=== PATIENT | female | born 1960 | race Caucasian/White ===

== ENCOUNTER 2017-09-23 11:37 | Inpatient (IN) | payer OTHER ==
[~2017-09-23] VITALS: Ht 172.7 cm; Wt 121.9 kg
[~2017-09-23 11:37] MED LIST: ASPI81CH PO; CARI350 PO; CHOL10002; CYCL10 PO; GLIM4 PO; GLIP10 PO; Glucophage1000 MG PO; HYDACE5 PO; INSULANPEN SQ; LISI5 PO; LOSA25 PO; LOVA20 PO; Lantus100 UNIT/1 SQ; Lopressor 25 mg25 MG PO; METF500 PO; METO50ER PO; MULVIT PO; NAPR220 PO; NAPR500 PO; NITR.4SL SL; Nitrostat0.4 MG; OMEP40CA12 PO; PIOG15 PO; SIMV40 PO; VITAMIN D32000 UNI1 PO; [UNRECOGNIZED DRUG - OTHER]
[2017-09-23 12:39] LABS: BASOPHILS ABSOLUTE AUTO 0.03 K/mm3 (0.00-0.23); BASOPHILS PERCENT AUTO 0 % (0-2); EOSINOPHILS ABSOLUTE AUTO 0.08 K/mm3 (0.00-0.68); EOSINOPHILS PERCENT AUTO 1 % (0-6); Hematocrit 39.9 % (33.0-51.0); Hemoglobin 12.4 g/dL (11.5-16.0); IMMATURE GRAN ABSOLUTE AUTO 0.03 K/mm3 (0.00-0.10); IMMATURE GRAN PERCENT AUTO 0 % (0-1); LYMPHOCYTES ABSOLUTE AUTO 1.94 K/mm3 (0.84-5.20); LYMPHOCYTES PERCENT AUTO 23 % (21-46); MONOCYTES ABSOLUTE AUTO 0.65 K/mm3 (0.16-1.47); MONOCYTES PERCENT AUTO 8 % (4-13); Mean Corpuscular HGB 25.6 pg (26.0-34.0); Mean Corpuscular HGB Conc 31.1 g/dL (31.5-36.5); Mean Corpuscular Volume 82 fL (80-100); Mean Platelet Volume 11.5 fL (9.1-12.4); NEUTROPHILS PERCENT AUTO 69 % (41-73); Platelet Count 195 K/mm3 (150-400); RDW Coefficient Variation 14.6 % (11.7-14.2); Red Blood Cell Count 4.85 M/mm3 (3.80-5.20); White Blood Cell Count 8.63 K/mm3 (4.00-11.30)
[2017-09-23 13:01] LABS: Alanine Aminotransfer (ALT/SGP 30 U/L (12-78); Albumin, Blood 3.7 g/dL (3.4-5.0); Albumin/Globulin Ratio 1.1 (0.8-1.8); Alk Phos 86 U/L (50-136); Anion Gap 10 mmol/L (6-16); Aspartate Aminotrans (AST/SGOT 22 U/L (12-37); Bilirubin, Total 0.4 mg/dL (0.1-1.0); Blood Urea Nitrogen 17 mg/dL (8-24); Bun/Creatinine Ratio 28.8 (12.0-20.0); CO2, Blood 24 mmol/L (21-32); Calcium, Blood 8.9 mg/dL (8.5-10.1); Chloride, Blood 104 mmol/L (98-108); Creatinine, Blood 0.59 mg/dL (0.40-1.00); Globulin, Blood 3.5 g/dL (2.2-4.0); Glomerular Filtration Rate >60 (60-); Glucose, Blood 194 mg/dL (70-99); Potassium, Blood 4.6 mmol/L (3.5-5.5); Sodium, Blood 138 mmol/L (136-145); Total Protein, Blood 7.2 g/dL (6.4-8.2); Troponin I 0.038 ng/mL (0.000-0.040)
[2017-09-23] MEDS ORDERED: VITAMIN D35000 UNIT PO (16:11)
[2017-09-23] MEDS ORDERED: GLIM4 PO (16:12)
[2017-09-23] MEDS ORDERED: BIOCLEANSE (16:14)
[2017-09-23] MEDS ORDERED: BASAGLAR K100 UNIT/1 SC (16:14)
[2017-09-23] MEDS ORDERED: METO50ER PO (16:16)
[2017-09-23] MEDS ORDERED: ALEVE220 MG PO (16:17)
[2017-09-24 00:54] LABS: BASOPHILS ABSOLUTE AUTO 0.04 K/mm3 (0.00-0.23); BASOPHILS PERCENT AUTO 1 % (0-2); EOSINOPHILS ABSOLUTE AUTO 0.06 K/mm3 (0.00-0.68); EOSINOPHILS PERCENT AUTO 1 % (0-6); Hematocrit 40.2 % (33.0-51.0); Hemoglobin 12.5 g/dL (11.5-16.0); IMMATURE GRAN ABSOLUTE AUTO 0.03 K/mm3 (0.00-0.10); IMMATURE GRAN PERCENT AUTO 0 % (0-1); LYMPHOCYTES ABSOLUTE AUTO 2.67 K/mm3 (0.84-5.20); LYMPHOCYTES PERCENT AUTO 33 % (21-46); MONOCYTES ABSOLUTE AUTO 0.63 K/mm3 (0.16-1.47); MONOCYTES PERCENT AUTO 8 % (4-13); Mean Corpuscular HGB 25.6 pg (26.0-34.0); Mean Corpuscular HGB Conc 31.1 g/dL (31.5-36.5); Mean Corpuscular Volume 82 fL (80-100); Mean Platelet Volume 11.3 fL (9.1-12.4); NEUTROPHILS ABSOLUTE AUTO 4.78 K/mm3 (1.96-9.15); NEUTROPHILS PERCENT AUTO 58 % (41-73); Platelet Count 204 K/mm3 (150-400); RDW Coefficient Variation 14.6 % (11.7-14.2); RDW Standard Deviation 43.8 fL (35.1-46.3); Red Blood Cell Count 4.89 M/mm3 (3.80-5.20); White Blood Cell Count 8.21 K/mm3 (4.00-11.30)
[2017-09-24 01:14] LABS: Anion Gap 8 mmol/L (6-16); Blood Urea Nitrogen 20 mg/dL (8-24); Bun/Creatinine Ratio 26.1 (12.0-20.0); CO2, Blood 27 mmol/L (21-32); Chloride, Blood 102 mmol/L (98-108); Creatinine, Blood 0.77 mg/dL (0.40-1.00); Glomerular Filtration Rate >60 (60-); Glucose, Blood 152 mg/dL (70-99); Potassium, Blood 3.9 mmol/L (3.5-5.5); Sodium, Blood 137 mmol/L (136-145); Troponin I 0.059 ng/mL (0.000-0.040)
[2017-09-24] MEDS ORDERED: MELA3 PO (22:31)
[2017-09-27] MEDS ORDERED: Isosorbide Mono60 MG PO (16:26)
[2017-09-27] MEDS ORDERED: ATOR40TA PO (16:29)
[2017-09-27] MEDS ORDERED: Protonix40 M1 PO (16:29)
[2017-09-27] MEDS ORDERED: CLOP75 PO (16:30)
== END 2017-09-27 17:15 | disposition home or self-care (01) | DRG 281 ==
LOC: ER 11:37 → MEDS 11:38 → PCU 09-27 11:14
PROVIDERS: Emergency Medicine; Internal Medicine
PROC: 4A023N7 Measurement of Cardiac Sampling and Pressure, Left Heart, Percutaneous Approach (ICD-10-PCS; principal; 2017-09-27)
PROC: B211YZZ Fluoroscopy of Multiple Coronary Arteries using Other Contrast (ICD-10-PCS; 2017-09-27)
PROC: B218YZZ Fluoroscopy of Left Internal Mammary Bypass Graft using Other Contrast (ICD-10-PCS; 2017-09-27)
PROC: B213YZZ Fluoroscopy of Multiple Coronary Artery Bypass Grafts using Other Contrast (ICD-10-PCS; 2017-09-27)
DX: I21.4 Non-ST elevation (NSTEMI) myocardial infarction (principal); Z68.41 Body mass index [BMI] 40.0-44.9, adult; E11.65 Type 2 diabetes mellitus with hyperglycemia; E66.01 Morbid (severe) obesity due to excess calories; Z95.1 Presence of aortocoronary bypass graft; I25.810 Atherosclerosis of coronary artery bypass graft(s) without angina pectoris; I10 Essential (primary) hypertension; Z95.5 Presence of coronary angioplasty implant and graft; I70.208 Unspecified atherosclerosis of native arteries of extremities, other extremity; Z79.4 Long term (current) use of insulin; E78.5 Hyperlipidemia, unspecified; G47.30 Sleep apnea, unspecified; K21.9 Gastro-esophageal reflux disease without esophagitis; G47.33 Obstructive sleep apnea (adult) (pediatric); I34.0 Nonrheumatic mitral (valve) insufficiency; F17.210 Nicotine dependence, cigarettes, uncomplicated
CPT/HCPCS: 36415; 71046; 75710; 78452; 80048; 80053; 82947; 83880; 84484; 85025; 93005; 93010; 93017; 93306; 93459; 94660; 94762; 96372; 96374; 96375; 96376; 99152; 99153; 99285; A9500; C1769; C9113; G0378; J0280; J1644; J1650; J1815; J1940; J2250; J2785; J3010; J7030; J7040; Q9967

== ENCOUNTER 2017-11-06 09:43 | Emergency (ER) | payer OTHER ==
[~2017-11-06] VITALS: Ht 172.7 cm; Wt 120.2 kg
[~2017-11-06 09:43] MED LIST changes: +ALEVE220 MG PO; +ATOR40TA PO; +BASAGLAR K100 UNIT/1 SC; +BIOCLEANSE; +CLOP75 PO; +Isosorbide Mono60 MG PO; +MELA3 PO; +Protonix40 M1 PO; +VITAMIN D35000 UNIT PO
== END 2017-11-06 11:37 | disposition home or self-care (01) ==
LOC: ER 09:43
DX: M71.22 Synovial cyst of popliteal space [Baker], left knee (principal); Z88.0 Allergy status to penicillin; Z79.899 Other long term (current) drug therapy; Z79.82 Long term (current) use of aspirin; Z79.84 Long term (current) use of oral hypoglycemic drugs; I25.2 Old myocardial infarction; I10 Essential (primary) hypertension; Z87.891 Personal history of nicotine dependence
CPT/HCPCS: 93971; 99284

== ENCOUNTER → 2018-08-06 | Outpatient (CLI) | payer OTHER ==
[2018-08-08 14:08] LABS: HPV 16 Negative (Negative); HPV 18 Negative (Negative); HPV OTHER HR TYPES Negative (Negative)
== END | disposition home or self-care (01) ==
LOC: LAB SHORT 10:01 → LAB UCHC 10:01
PROVIDERS: Physician Assistant
DX: Z12.4 Encounter for screening for malignant neoplasm of cervix (principal)
CPT/HCPCS: 87624; G0123

== ENCOUNTER 2018-10-08 11:18 | Emergency (ER) | payer OTHER ==
[~2018-10-08] VITALS: Ht 172.7 cm; Wt 122.5 kg
[2018-10-08 11:56] LABS: BASOPHILS ABSOLUTE AUTO 0.04 K/mm3 (0.00-0.23); BASOPHILS PERCENT AUTO 1 % (0-2); EOSINOPHILS ABSOLUTE AUTO 0.04 K/mm3 (0.00-0.68); EOSINOPHILS PERCENT AUTO 1 % (0-6); Hematocrit 41.4 % (33.0-51.0); Hemoglobin 12.2 g/dL (11.5-16.0); IMMATURE GRAN ABSOLUTE AUTO 0.03 K/mm3 (0.00-0.10); IMMATURE GRAN PERCENT AUTO 0 % (0-1); LYMPHOCYTES PERCENT AUTO 25 % (21-46); MONOCYTES ABSOLUTE AUTO 0.53 K/mm3 (0.16-1.47); MONOCYTES PERCENT AUTO 6 % (4-13); Mean Corpuscular HGB 26.6 pg (26.0-34.0); Mean Corpuscular HGB Conc 29.5 g/dL (31.5-36.5); Mean Corpuscular Volume 90 fL (80-100); Mean Platelet Volume 11.1 fL (9.1-12.4); NEUTROPHILS ABSOLUTE AUTO 5.81 K/mm3 (1.96-9.15); NEUTROPHILS PERCENT AUTO 68 % (41-73); Platelet Count 193 K/mm3 (150-400); RDW Coefficient Variation 14.6 % (11.7-14.2); Red Blood Cell Count 4.58 M/mm3 (3.80-5.20); White Blood Cell Count 8.55 K/mm3 (4.00-11.30)
[2018-10-08 12:15] LABS: Alanine Aminotransfer (ALT/SGP 31 U/L (12-78); Albumin, Blood 3.7 g/dL (3.4-5.0); Albumin/Globulin Ratio 1.1 (0.8-1.8); Alk Phos 85 U/L (50-136); Anion Gap 8 mmol/L (6-16); Aspartate Aminotrans (AST/SGOT 15 U/L (12-37); Bilirubin, Total 0.4 mg/dL (0.1-1.0); Blood Urea Nitrogen 15 mg/dL (8-24); Bun/Creatinine Ratio 23.4 (12.0-20.0); CO2, Blood 25 mmol/L (21-32); Calcium, Blood 9.2 mg/dL (8.5-10.1); Chloride, Blood 105 mmol/L (98-108); Creatinine, Blood 0.64 mg/dL (0.40-1.00); Globulin, Blood 3.5 g/dL (2.2-4.0); Glomerular Filtration Rate >60 (60-); Glucose, Blood 176 mg/dL (70-99); Potassium, Blood 4.6 mmol/L (3.5-5.5); Sodium, Blood 138 mmol/L (136-145); Total Protein, Blood 7.2 g/dL (6.4-8.2)
[2018-10-08 12:27] LABS: International Normalized Ratio 0.99; Prothrombin Time Results 10.5 Sec (9.7-11.5)
[2018-10-08] MEDS ORDERED: Novolog100 UNIT/2 (13:05)
[2018-10-08] MEDS ORDERED: BASAGLAR K100 UNIT/1 SC ×2 (13:06)
== END 2018-10-08 15:00 | disposition home or self-care (01) ==
LOC: ER 11:18
PROVIDERS: Physician Assistant
DX: R20.2 Paresthesia of skin (principal); R42 Dizziness and giddiness; Z88.0 Allergy status to penicillin; I10 Essential (primary) hypertension; I25.2 Old myocardial infarction; Z87.891 Personal history of nicotine dependence; Z79.4 Long term (current) use of insulin; Z79.82 Long term (current) use of aspirin; Z79.899 Other long term (current) drug therapy
CPT/HCPCS: 36415; 70450; 71046; 80053; 82947; 85025; 85610; 93005; 93010; 99284-25

== ENCOUNTER 2019-03-03 08:30 | Day surgery (SDC) | payer OTHER ==
[~2019-03-03] VITALS: Ht 172.7 cm; Wt 119.0 kg
[~2019-03-03 08:30] MED LIST changes: +GABA100 PO; +Isosorbide Mono30 MG PO; +Novolog100 UNIT/2
--- NOTE | 2019-03-03 15:31 | NUR ---
Discharge Pt remianed A&OX3 and denied any pain during recovery. Pt up to restroom and dresses self independantly. R groin site remains cdi-no hematoma noted. IV DC'D with canula in tact. Discharge paperwork gone over with pt and daughter. Pt and daughter verbally stated the understanding of the discharge education given and denied any questions at this time. Pt wheeled out.
== END 2019-03-03 15:00 | disposition home or self-care (01) ==
LOC: MHTC 08:30
DX: I70.8 Atherosclerosis of other arteries (principal); I65.01 Occlusion and stenosis of right vertebral artery; I65.21 Occlusion and stenosis of right carotid artery
CPT/HCPCS: 36215; 36218; 36223; 36225; 37236; 37237; 85347; 99152; 99153; C1725; C1760; C1769; C1874; C1876; C1887; C1894; J0461; J1644; J2250; J3010; J7030; Q9967

== ENCOUNTER 2019-03-06 09:19 | Emergency (ER) | payer OTHER ==
[~2019-03-06] VITALS: Ht 172.7 cm; Wt 117.5 kg
== END 2019-03-06 10:01 | disposition home or self-care (01) ==
LOC: ER 09:19
DX: G89.18 Other acute postprocedural pain (principal); M79.601 Pain in right arm; I25.2 Old myocardial infarction; Z87.891 Personal history of nicotine dependence; Z88.0 Allergy status to penicillin; Z79.82 Long term (current) use of aspirin; Z79.899 Other long term (current) drug therapy; Z79.4 Long term (current) use of insulin
CPT/HCPCS: 99283

== ENCOUNTER → 2020-03-14 | Outpatient (CLI) | payer OTHER ==
[~2020-03-14] MED LIST changes: +CLOP75; +Crestor40 MG; +Lisinopril2.5 MG
[2020-03-14 13:28] LABS: Microalb/Creat Ratio UR, Rand 25.083 mg/g (0.000-30.000); Microalbumin, Random Urine 6.02 mg/L (0.000-20.000)
== END | disposition home or self-care (01) ==
LOC: LAB SHORT 08:14 → LAB UCHC 08:14
PROVIDERS: Physician Assistant
DX: E11.40 Type 2 diabetes mellitus with diabetic neuropathy, unspecified (principal)
CPT/HCPCS: 82043; 82570

== ENCOUNTER → 2021-01-23 | Outpatient (CLI) | payer OTHER ==
[2021-01-24 10:52] LABS: Candida species (DNA Probe) Negative (NEGATIVE); G. vaginalis (DNA Probe) Negative (NEGATIVE); T. vaginalis (DNA Probe) Negative (NEGATIVE)
== END | disposition home or self-care (01) ==
LOC: LAB SHORT 10:40 → LAB 10:40
PROVIDERS: Physician Assistant
DX: N89.8 Other specified noninflammatory disorders of vagina (principal)
CPT/HCPCS: 87086; 87480; 87510; 87660

== ENCOUNTER → 2022-08-04 | Outpatient (CLI) | payer OTHER | END | disposition home or self-care (01) | LOC: LAB SHORT 13:53 → LAB 13:53 | DX: J20.9 Acute bronchitis, unspecified (principal) | CPT/HCPCS: 87807 ==

== ENCOUNTER 2023-07-30 08:05 | Day surgery (SDC) | payer OTHER ==
[~2023-07-30] VITALS: Ht 170.2 cm; Wt 104.4 kg
[2023-07-30] MEDS ORDERED: OMEP20ER (08:29)
[2023-07-30] MEDS ORDERED: FAMO20 (08:29)
[2023-07-30] MEDS ORDERED: HYDCHL25 (08:30)
[2023-07-30] MEDS ORDERED: KRILL OIL500 MG (08:30)
[2023-07-30] MEDS ORDERED: LOSA25 (08:30)
[2023-07-30] MEDS ORDERED: CYCL10 (08:32)
[2023-07-30] MEDS ORDERED: BUSP10 (08:33)
[2023-07-30] MEDS ORDERED: PIOG30 (08:33)
[2023-07-30] MEDS ORDERED: ZYRTEC10 M2 (08:33)
[2023-07-30] MEDS ORDERED: STOOL SOFTENER (08:34)
[2023-07-30] MEDS ORDERED: STEGLATRO15 MG (08:34)
[2023-07-30] MEDS ORDERED: PROBIOTIC1 EA14 (08:34)
[2023-07-30] MEDS ORDERED: NITR6.5ER (08:35)
[2023-07-30] MEDS ORDERED: Bupropion HCl75 MG (08:37)
--- NOTE | 2023-07-30 09:45 | NUR ---
07/30/23 0945 Cathie Dickinson PT IV INFILTRATED AT START OF ANESTHESIA INDUCTION, IV DC'D COBAN AND WARM PACK APPLIED TO RIGHT HAND. NEW IV STARTED IN LEFT HAND, FLUIDS RUNNING WELL.
[2023-07-30 10:33] VITALS: BP 102/55
== END 2023-07-30 10:43 | disposition home or self-care (01) ==
LOC: ORSCSDS 08:05
PROVIDERS: Internal Medicine Gastroenterology
PROC: 0DJD8ZZ Inspection of Lower Intestinal Tract, Via Natural or Artificial Opening Endoscopic (ICD-10-PCS; principal; 2023-07-30 09:30)
PROC: 0DB58ZX Excision of Esophagus, Via Natural or Artificial Opening Endoscopic, Diagnostic (ICD-10-PCS; 2023-07-30 09:30)
DX: K21.9 Gastro-esophageal reflux disease without esophagitis (principal); Z12.11 Encounter for screening for malignant neoplasm of colon; Z86.010 Personal history of colon polyps; Z80.0 Family history of malignant neoplasm of digestive organs; K44.9 Diaphragmatic hernia without obstruction or gangrene; E11.9 Type 2 diabetes mellitus without complications; I10 Essential (primary) hypertension; G47.33 Obstructive sleep apnea (adult) (pediatric); E78.5 Hyperlipidemia, unspecified; I25.10 Atherosclerotic heart disease of native coronary artery without angina pectoris; Z79.82 Long term (current) use of aspirin; Z79.4 Long term (current) use of insulin; Z79.84 Long term (current) use of oral hypoglycemic drugs; Z79.02 Long term (current) use of antithrombotics/antiplatelets; Z87.891 Personal history of nicotine dependence; Z79.899 Other long term (current) drug therapy
CPT/HCPCS: 82947; 88305; J2704; J7120

== ENCOUNTER 2025-01-09 01:41 | Emergency (ER) | payer OTHER ==
[~2025-01-09] VITALS: Ht 172.7 cm; Wt 75.3 kg
[~2025-01-09 01:41] MED LIST changes: +BUSP10; +Bupropion HCl75 MG; +CYCL10; +FAMO20; +HYDCHL25; +KRILL OIL500 MG; +LOSA25; +NITR6.5ER; +OMEP20ER; +PIOG30; +PROBIOTIC1 EA14; +STEGLATRO15 MG; +STOOL SOFTENER; +ZYRTEC10 M2
[2025-01-09 03:30] VITALS: BP 130/90
[2025-01-09] MEDS ORDERED: Diphth,Pertuss(Acell),Tet Vac 0.5 ML VIAL IM ONE (03:30)
== END 2025-01-09 03:50 | disposition home or self-care (01) ==
LOC: ER 01:41
DX: S01.112A Laceration without foreign body of left eyelid and periocular area, initial encounter (principal); I10 Essential (primary) hypertension; E11.9 Type 2 diabetes mellitus without complications; E78.00 Pure hypercholesterolemia, unspecified; K21.9 Gastro-esophageal reflux disease without esophagitis; X58.XXXA Exposure to other specified factors, initial encounter; Z23 Encounter for immunization; Z87.891 Personal history of nicotine dependence; Z79.899 Other long term (current) drug therapy; Z79.82 Long term (current) use of aspirin; Z79.4 Long term (current) use of insulin; Z88.0 Allergy status to penicillin
CPT/HCPCS: 12011; 70450; 72125; 90471; 90715; 99283-25

== ENCOUNTER 2025-02-03 08:36 | Day surgery (SDC) | payer OTHER | END 2025-02-03 23:00 | disposition home or self-care (01) | LOC: MOI MAM 08:36 | DX: D24.2 Benign neoplasm of left breast (principal); R92.1 Mammographic calcification found on diagnostic imaging of breast | CPT/HCPCS: 19081; 88305; A4648 ==

== ENCOUNTER → 2025-05-18 | Outpatient (CLI) | payer OTHER ==
[2025-05-18 11:35] LABS: Source, Urine Clean Catch
[2025-05-18 12:18] LABS: Bilirubin, Urine Neg (Neg); Color, Urine Yellow (P-Yellow); Glucose Qualitative, Urine Neg (Normal); Ketones, Urine Neg (Neg); Leukocyte Esterase, Urine Neg (Neg); Protein, Urine Neg (Neg); Specific Gravity, Urine 1.005 (1.003-1.022); Urobilinogen, Urine NORM (Normal)
== END ==
LOC: LAB SHORT 11:33 → LAB 11:33
PROVIDERS: Internal Medicine Endocrinology, Diabetes & Metabolism
DX: R30.0 Dysuria (principal)
CPT/HCPCS: 81003